=== PATIENT | male | born 1935 | race Caucasian/White ===

== ENCOUNTER 2017-10-23 10:39 | Emergency (ER) | payer MEDICARE ==
[2017-10-23 12:02] LABS: #Eosinphils 0.1 thou/uL (0.0-0.7); #Lymphocytes 0.8 thou/uL (1.20-3.40); #Monocytes 0.5 thou/uL (0.11-0.59); #Neutrophils 3.3 thou/uL (1.40-6.50); %Basophils 0.7 % (0.0-1.0); %Eosinophils 2.9 % (0.0-10.0); %Lymphocytes 16.2 % (21.0-51.0); %Monocytes 10.4 % (0.0-10.0); %Neutrophils 69.8 % (42.0-75.0); Hemoglobin 15.8 g/dL (14.0-18.0); Mean Corpuscular HGB CONC 32.7 g/dL (32.0-36.0); Mean Corpuscular Hemoglobin 33.3 pg (27.0-31.0); Mean Platelet Volume 7.2 fL (7.4-10.4); Platelet Count 199 thou/uL (130-400); RBC Distribution Width 12.9 % (11.5-14.5); Red Blood Cell (RBC) Count 4.75 mill/uL (4.70-6.10); White Blood Cell (WBC) Count 4.7 thou/uL (4.8-10.8)
[2017-10-23 12:20] LABS: ALT (SGPT) 13 U/L (8-55); AST (SGOT) 13 U/L (5-34); Albumin 4.4 g/dL (3.4-4.8); Alkaline Phosphatase 95 U/L (40-150); Anion Gap 13 mmol/L (10-20); BUN (Urea Nitrogen) 18 mg/dL (8.4-25.7); Bilirubin, Total 1.4 mg/dL (0.2-1.2); CK (CPK) 28 U/L (30-200); Calc. Creatinine Clearance 0 mL/min (70-130); Calcium 9.9 mg/dL (7.8-10.44); Carbon Dioxide 24 mmol/L (23-31); Chloride 103 mmol/L (98-107); Estimated GFR-MDRD Greater than 90; Globulin 2.8 g/dL (2.4-3.5); Glucose 104 mg/dL (83-110); Potassium 3.9 mmol/L (3.5-5.1); Protein, Total 7.2 g/dL (5.8-8.1); Sodium 136 mmol/L (136-145)
[2017-10-23 12:23] LABS: CKMB 0.7 ng/mL (0-6.6); Troponin I 0.029 ng/mL (< 0.028)
--- NOTE | 2017-10-23 12:26 | RAD ---
[facility]: Comparison: 08-13-13, 01-29-17 FINDINGS: Portable upright chest demonstrates an air filled colon, incompletely evaluated. Lung volumes are dim inished, likely due to poor inspiratory effort. Normal cardiac silhouette. No pneumothorax or osseous abnormality. IMPRESSION: 1. No acute cardiopulmonary process. 2. Diminished lung volumes, likely due to poor inspiratory effort. 3. Air lucency around the central aspect of the abdomen which is presumed to be in the colon. Better interrogation with an abdomen radiographic series is recommended. POS: KEO
--- NOTE | 2017-11-30 11:44 | EKG ---
Test Reason : Blood Pressure : / mmHG Vent. Rate : 065 BPM Atrial Rate : 065 BPM P-R Int : 150 ms QRS Dur : 096 ms QT Int : 410 ms P-R-T Axes : 018 -05 020 degrees QTc Int : 426 ms Sinus rhythm with occasional Premature ventricular complexes and Fusion complexes Cannot rule out Inferior infarct , age undetermined Abnormal ECG Confirmed by DIONNE RICHARDSON, AILEEN Gardner ([id number]), subeditor KYREE BURRIS ([id number]) on 11/30/2017 11:43:52 AM Referred By: Confirmed By:AILEEN TRUONG MD
== END 2017-10-23 12:51 | disposition home or self-care (01) ==
LOC: ERS 10:39
DX: R00.2 Palpitations (principal); I10 Essential (primary) hypertension; I48.91 Unspecified atrial fibrillation; Z79.899 Other long term (current) drug therapy
CPT/HCPCS: 71045; 80053; 82550; 82553; 84484; 85025; 93005; 94760

== ENCOUNTER 2019-08-20 09:18 | Outpatient (CLI) | payer MEDICARE ==
--- NOTE | 2019-08-20 10:25 | MRI ---
Brain MRI without contrast: 08/20/2019 COMPARISON: None HISTORY: Memory and behavioral indeterminant, evaluate for a structural cause TECHNIQUE: Multiplanar multisequence MR imaging of the brain obtained without contrast FINDINGS: The diffusion weighted imaging demonstrates no evidence for acute infarction. The axial gradient echo imaging demonstrates no evidence for intracranial hemorrhage. There is moderate diffuse cerebral volume loss with associated prominence of the CSF containing space s. The imaged paranasal sinuses and mastoid air cells appear grossly unremarkable. Regional bone marrow signal intensity appears within normal limits. There is degenerative change at the atlantoaxial interspace. IMPRESSION: Cerebral volume loss. No intracranial hemorrhage or evidence of acute infarction.
--- NOTE | 2019-08-20 14:23 | PET ---
EXAM: PET/CT BRAIN HISTORY: Memory impairment TECHNIQUE: PET scanning with CT attenuation correction of the brain was performed following the intravenous admi nistration of 8.5 millicuries [id number]. COMPARISON: None. CORRELATION: MRI of same date FINDINGS: No regional or focal hypometabolism is seen in either hemisphere. IMPRESSION: Unremarkable exam.
== END 2019-08-20 09:19 | disposition home or self-care (01) ==
LOC: MRI 09:18
DX: G31.9 Degenerative disease of nervous system, unspecified (principal); R41.3 Other amnesia
CPT/HCPCS: 70551; 78608; A9552